=== PATIENT | female | born 1945 | race African-American/Black ===

== ENCOUNTER 2017-04-09 11:11 | Inpatient (IN) | payer OTHER ==
[~2017-04-09] VITALS: Ht 206 cm; Wt 94.5 kg
--- NOTE | ~2017-04-09 | HC ---
[facility] [place] [address] [address] CONSULTATION Name: IM STALEY Room #: 212-P [facility] IN .R.#: [id number] Admission: 04/10/17 Attend Phys: Babatunde Vicente DO Discharge: Date of : 47 Report #: [id number] THIS REPORT FOR: //name// CC: Babatunde Khan MD DATE OF SERVICE: 04/09/2017 CARDIOLOGY CONSULTATION HISTORY OF PRESENT ILLNESS: The patient is a 72-year-old single black female who I was asked to see in hospital today after she complained of being short of breath. The patient has a long history of atrial fibrillation. She has never been cardioverted, but has been chronically anticoagulated. She has been followed by my partner, Dr. Garland Randall. She actually last saw Dr. Randall 2 years ago. She is not very active because of her large size. She is 5 feet 3 inches and weighs 220 pounds. She does use a cane. However, she still lives by herself. She was doing well she states until a couple weeks ago. She got a flu shot. She then broke out in a rash. She has had progressive shortness of breath. Today because of increasing shortness of breath and fatigue, she finally came to the emergency room and was admitted. She denies any increasing edema. She has gained some weight. She denies fever or significant cough, but states she has been wheezing. She denies history of myocardial infarction or chest pain. She notes her heart rate has been faster than usual, but she has had no bleeding. She has had no syncope. PAST MEDICAL HISTORY: Significant for delivering 4 children. She has a history of hypertension, diabetes, hyperlipidemia and gout. She has a history of asthma. Has had nebulizer and inhaler at home. MEDICATIONS: At home consists of Wellbutrin, Lasix 40 mg a day, Prilosec, albuterol inhaler, hydrocodone, lisinopril, digoxin, tramadol, allopurinol, potassium, metformin, Neurontin, Xarelto 20 mg a day and amlodipine 5 mg a day. ALLERGIES: She has intolerance to multiple medications including ATORVASTATIN, CODEINE, DILTIAZEM, PENICILLIN, QUINOLONES, and AMOXICILLIN. FAMILY HISTORY: Her mother had heart disease. SOCIAL HISTORY: She is . Lives by herself in [place], [place]. Quit smoking 10 years ago. No alcohol use. REVIEW OF SYSTEMS: She has had apparently a stroke in the past with some slurred speech. She has COPD. No history of peptic ulcer disease, liver disease, kidney disease, cancer or psychiatric illness. [facility] [address] [place] [address] CONSULTATION Name: MI STALEY Alexx Room #: 212-P [facility] IN M.R.#: [id number] Admission: 04/10/17 Attend Phys: Babatunde Vicente DO Discharge: Date of : 47 Report #: [id number] PHYSICAL EXAMINATION: GENERAL: Revealed an elderly -Portuguese female who is lying in bed. She appeared in no acute distress. VITAL SIGNS: Her blood pressure is 160/80. Pulse is 80 and irregular. She is afebrile. HEENT: She is anicteric. Conjunctivae pink. Mucous members moist. NECK: Veins do not appear distended, radiating systolic murmur noted in carotids. CHEST: Reveals coarse breath sounds bilaterally. HEART: Irregular rhythm, grade 3 holosystolic murmur along lower sternal border. ABDOMEN: Obese, soft and nontender. EXTREMITIES: Had no pitting edema. Dorsalis pedis pulse 1+ bilaterally. SKIN: Cool and dry. NEUROLOGIC: Nonfocal. LYMPH: No adenopathy. MUSCULOSKELETAL: No joint effusions. PSYCHIATRIC: Her mood is appropriate. Her ECG from earlier today showed atrial fibrillation, occasional aberrant conducted complex, nonspecific T-wave changes. Her workup so far, she did have an echocardiogram today that showed normal left ventricular function; left ventricular hypertrophy; biatrial enlargement; mild aortic stenosis; moderate mitral, moderate tricuspid, mild aortic insufficiency and severe pulmonary hypertension with the pulmonary artery pressure of 70 mmHg. X-rays in the Emergency Room today. She had a portable chest x-ray that showed cardiomegaly and bilateral pulmonary edema. Previous nuclear stress test in 2007 showed diaphragmatic attenuation with no ischemia. LABORATORY WORK: Sodium 143 and potassium 3.9. BUN 21 and creatinine 1.1. Glucose 197. Liver function studies were normal. Troponin 0.07. BNP 4074. White blood cell count 15.1 and hemoglobin 12.9. Blood gas in the emergency room today: pH 7.44, pCO2 47 and pO2 is 71. IMPRESSION AND RECOMMENDATIONS: 1. Acute on chronic diastolic heart failure. Recommend IV Lasix. 2. Chronic obstructive pulmonary disease. The patient is receiving bronchodilators. 3. Recent rash. Possibly related to her flu shot. 4. Hypertension. The patient has been on an angiotensin-converting enzyme inhibitor and calcium david. 5. Diabetes. 6. Atrial fibrillation. Rate controlled with digoxin. I would continue chronic anticoagulation. [facility] [address] [place] [address] CONSULTATION Name: MI STALEY Room #: 212-P [facility] IN M.R.#: [id number] Admission: 04/10/17 Attend Phys: Babatunde Vicente DO Discharge: Date of : 47 Report #: [id number] 7. Hyperlipidemia. The patient is on Zetia. 8. Previous stroke. I would continue chronic anticoagulation. <ELECTRONICALLY SIGNED> By: Johnathon Griggs MD, FACC 04/11/17 0956 1707 Johnathon Griggs MD, FACC /nt
--- NOTE | ~2017-04-09 | 2DMMODE ---
[facility] [address] [place] [address] 2 D/M-MODE ECHOCARDIOGRAM Name: MI STALEY Room #: 212-P [facility] IN ..#: [id number] Admission: 04/09/17 Attend Phys: Babatunde Vicente, Discharge: Date of : 47 Date of Service: 04/09/17 [facility] Report #: [id number] THIS REPORT FOR: //name// APPROVED REPORT Study performed: 04/09/2017 16:44:02 EXAM: Comprehensive 2D, Doppler, and color-flow Echocardiogram Patient Location: Bedside Room #: 212 Status: routine BSA: 1.87 HR: 86 bpm BP: 163/97 mmHg Other Information Study Quality: Good Indications Congestive Heart Failure COPD Diabetes Atrial Fibrillation Hypertension/HDD 2D Dimensions RVDd: 33.83 mm LVEF(%): 64.83 (>50%) IVSd: 12.19 (7-11mm) LVOT Diam: 19.02 (18-24mm) LVDd: 47.48 mm PWd: 13.31 (7-11mm) Ascending Ao: 23.41 (22-36mm) LVDs: 30.64 (25-40mm) Aortic Root: 21.64 mm IVC: 24.00 mm Morton's LVEF: 64.83 % Volumes Left Atrial Volume (Systole) Single Plane 4CH: 162.34 mL Single Plane 2CH: 126.53 mL LA ESV Index: 84.00 mL/m2 Aortic Valve AoV Peak Gerber.: 2.92 m/s AO Peak Gr.: 34.22 mmHg LVOT Max P.68 mmHg AO Mean Gr.: 21.03 mmHg LVOT Mean P.74 mmHg AO V2 Mean: 2.14 m/s LVOT Max V: 1.08 m/s AO V2 VTI: 52.25 cm LVOT Mean V: 0.77 m/s [facility] [place] [address] 2 D/M-MODE ECHOCARDIOGRAM Name: REBEKAMI L Room #: 212-P [facility] IN ..#: [id number] Admission: 04/09/17 Attend Phys: Babatunde Vicente, Discharge: Date of : 47 Date of Service: 04/09/17 [facility] Report #: [id number] LUCITA (VTI): 1.03 cm2 LVOT V1 VTI: 18.99 cm LUCITA Vmax: 1.05 cm2 AI Vmax: 4.44 m/s SV (LVOT): 53.93 mL AI [place]: 2.04 m/s2 AI PHT: 633.68 ms Mitral Valve MV Decel. Time: 165.45 ms MV E Max Gerber.: 1.61 m/s Pulmonary Valve PV Peak Gerber.: 1.58 m/s PV Peak Gr.: 10.02 mmHg Tricuspid Valve TR Peak Gerber.: 3.94 m/s TR Peak Gr.: 62.04 mmHg PA Pressure: 72.00 mmHg Left Ventricle The left ventricle is normal size. There is normal LV segmental wall motion. Mild concentric left ventricular hypertrophy. The left ventricular systolic function is normal. The left ventricular ejection fraction is within the normal range. LVEF is 60-65%. This study is not technically sufficient to allow evaluation of the LV diastolic function due to atrial fibrillation. Right Ventricle The right ventricle is normal size. The right ventricular systolic function is normal. Atria Left atrium is severely dilated. Right atrium is moderately dilated. Aortic Valve Aortic valve is calcified. Mild aortic regurgitation. Mild aortic stenosis. Mitral Valve The mitral valve is normal in structure. Mild to moderate mitral regurgitation. No evidence of mitral valve stenosis. Tricuspid Valve The tricuspid valve is normal in structure. There is moderate tricuspid regurgitation. The right atrial pressure is estimated at 70 mmHg. There is severe pulmonary hypertension. [facility] [address] [place] [address] 2 D/M-MODE ECHOCARDIOGRAM Name: MI STALEY Room #: 212-P [facility] IN ..#: [id number] Admission: 04/09/17 Attend Phys: Babatunde Vicente, Discharge: Date of : 47 Date of Service: 04/09/17 [facility] Report #: [id number] Pulmonic Valve The pulmonary valve is normal in structure. Mild pulmonic regurgitation. Great Vessels The aortic root is normal in size. IVC is normal in size and collapses >50% with inspiration. Pericardium There is no pericardial effusion. <Conclusion> Mild concentric left ventricular hypertrophy. LVEF is 60-65%. Left atrium is severely dilated. Right atrium is moderately dilated. Aortic valve is calcified. Mild aortic regurgitation. Mild to moderate mitral regurgitation. There is moderate tricuspid regurgitation. The right atrial pressure is estimated at 70 mmHg. There is severe pulmonary hypertension. Mild aortic stenosis. <ELECTRONICALLY SIGNED> By: Johnathon Griggs MD, FACC 04/09/17 1640 1640 1640 Johnathon Griggs MD, FACC /INF
--- NOTE | ~2017-04-09 | EKG ---
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[id number] Requested By: Alvaro Blanco Order Number: [id number] MD: Rudy Lagunas Measurements Intervals [place] Rate: 94 P: NM: QRS: 33 QRSD: 95 T: 143 QT: 351 QTc: 439 Interpretive Statements Atrial fibrillation Ventricular premature complex Borderline low voltage, extremity leads Probable left ventricular hypertrophy Nonspecific T abnormalities, lateral leads Baseline wander in lead(s) V6 Compared to ECG 08/09/2007 10:27:05 Ventricular premature complex(es) now present T-wave abnormality now present ST (T wave) deviation no longer present Possible ischemia no longer present Electronically Signed On 04-09-2017 18:43:03 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
[2017-04-09 11:12] VITALS: BP 144/69
[2017-04-09 11:51] LABS: HEMATOCRIT 39.7 % (37.0-47.0); HEMOGLOBIN 12.9 gm/dL (12.0-15.0); MCH 27.9 pg (26.0-34.0); MCHC 32.4 g/dL (28.0-37.0); PLATELET COUNT 280 thou/uL (150-400); RBC 4.61 mil/uL (4.20-5.00); RDW 15.2 % (10.5-14.5); WBC 15.1 thou/uL (4.0-11.0)
[2017-04-09 11:52] LABS: MANUAL DIFF YES
[2017-04-09] MEDS ORDERED: WELLBUTRIN XL150 MG PO (11:52)
[2017-04-09] MEDS ORDERED: CARAFATE 1 GM TA1 G1 PO (11:52)
[2017-04-09] MEDS ORDERED: PREDNISONE 10 M10 MG PO (11:52)
[2017-04-09 11:53] LABS: CALCIUM 9.6 mg/dL (8.5-10.1); CREATININE 1.1 mg/dL (0.6-1.0); POTASSIUM 3.9 mmol/L (3.5-5.1)
[2017-04-09] MEDS ORDERED: LASIX 40 MG TAB40 M2 PO (11:53)
[2017-04-09] MEDS ORDERED: ZYRTEC10 M4 PO (11:54)
[2017-04-09] MEDS ORDERED: PRILOSEC 20 MG20 MG PO (11:54)
[2017-04-09] MEDS ORDERED: FLONASE SENSIM9.9 ML INH (11:55)
[2017-04-09] MEDS ORDERED: CALCIUM 600 +1 EAC1 PO (11:57)
[2017-04-09] MEDS ORDERED: PROAIR RESPICL90 MCG (11:58)
[2017-04-09 11:59] LABS: ABG COMMENT ER MASK; ABG SAMPLE TYPE ARTERIAL; BE(vivo) 6.6 mmol/L (-2 to +3); HCO3 31.8 mmol/L (22.0-26.0); LACTATE 2.16 mmol/L (0.5-2.0); O2(CT) 17.5 mL/dL (15.0-23.0); O2Hb 90.9 % (92.0-98.0); PCO2 47.3 mmHg (35.0-45.0); PO2 61.7 mmHg (80.0-100.0); STICK SITE L.RADIAL; VDS 15LPM TO NONREBREATH cc; pH 7.445 (7.360-7.450); sO2 92.3 % (92.0-98.0); tCO2 33.2 mmol/L (24.0-30.0)
[2017-04-09] MEDS ORDERED: HYDROCODONE-AP1 EAC6 PO (11:59)
[2017-04-09] MEDS ORDERED: VENTOLIN HFA 1818 GM INH (11:59)
[2017-04-09] MEDS ORDERED: LISINOPRIL20 MG PO (11:59)
[2017-04-09] MEDS ORDERED: TRAMADOL 50 MG50 MG PO (12:00)
[2017-04-09] MEDS ORDERED: DIGOXIN250 MCG PO (12:00)
[2017-04-09 12:01] LABS: INR 1.4; PROTIME 13.9 Seconds (9.3-11.4)
[2017-04-09] MEDS ORDERED: ALLOPURINOL 10100 M1 PO (12:01)
[2017-04-09] MEDS ORDERED: ERGOCALCIF50000 UNIT PO (12:01)
[2017-04-09 12:02] LABS: ALBUMIN 2.9 g/dL (3.4-5.0); MAGNESIUM 1.8 mg/dL (1.8-2.4); TOTAL BILIRUBIN 0.8 mg/dL (<0.1-1.0); TOTAL PROTEIN 7.1 g/dL (6.4-8.2); TROPONIN-I 0.08 ng/mL (<0.06)
[2017-04-09] MEDS ORDERED: KLOR-CON 1010 MEQ PO (12:02)
[2017-04-09] MEDS ORDERED: VOLTAREN GEL 1100 G2 TOP (12:02)
[2017-04-09] MEDS ORDERED: AMBIEN 5 MG TABL5 M1 PO (12:03)
[2017-04-09] MEDS ORDERED: ALBUTEROL2.5 MG/31 INH (12:03)
[2017-04-09] MEDS ORDERED: NEURONTIN 300300 M1 PO (12:04)
[2017-04-09] MEDS ORDERED: XARELTO20 MG PO (12:04)
[2017-04-09] MEDS ORDERED: GLUCOPHAGE XR500 MG PO (12:04)
[2017-04-09] MEDS ORDERED: COLCHICINE0.6 MG PO (12:05)
[2017-04-09] MEDS ORDERED: NORVASC5 MG PO (12:05)
[2017-04-09] MEDS ORDERED: NASONEX17 GM NASAL (12:06)
[2017-04-09] MEDS ORDERED: TUDORZA PRESS400 MCG INH (12:06)
[2017-04-09 12:56] LABS: ABSOLUTE NEUTROPHILS 13.4 thou/uL (1.4-8.2); METAMYELOCYTES 1 %; TOTAL CELL COUNT 100
[2017-04-09 12:57] LABS: ANISOCYTOSIS SLIGHT
[2017-04-09 13:49] VITALS: BP 169/79
[2017-04-09 14:36] VITALS: BP 163/97
[2017-04-09 14:50] VITALS: BP 163/97
[2017-04-09 19:26] VITALS: BP 142/54
[2017-04-09 23:47] VITALS: BP 151/90
[2017-04-10 02:45] LABS: HEMATOCRIT 37.2 % (37.0-47.0); HEMOGLOBIN 11.9 gm/dL (12.0-15.0); MCH 27.9 pg (26.0-34.0); MCV 87.2 fL (80.0-100.0); PLATELET COUNT 272 thou/uL (150-400); RBC 4.26 mil/uL (4.20-5.00); RDW 15.1 % (10.5-14.5); WBC 11.8 thou/uL (4.0-11.0)
[2017-04-10 02:47] VITALS: BP 171/100
[2017-04-10 02:49] LABS: MANUAL DIFF YES
[2017-04-10 02:52] LABS: POTASSIUM 4.2 mmol/L (3.5-5.1)
[2017-04-10 03:30] LABS: DIGOXIN 1.4 ng/mL (0.9-2.0); MAGNESIUM 1.9 mg/dL (1.8-2.4)
[2017-04-10 04:31] VITALS: BP 173/82
[2017-04-10 05:39] LABS: METAMYELOCYTES 1 %; TOTAL CELL COUNT 100
[2017-04-10 07:20] VITALS: BP 150/86
[2017-04-10 11:23] VITALS: BP 146/80
[2017-04-10 15:04] VITALS: BP 135/65
[2017-04-10 19:38] VITALS: BP 141/78
[2017-04-11 03:36] LABS: CALCIUM 9.1 mg/dL (8.5-10.1); CREATININE 1.3 mg/dL (0.6-1.0); POTASSIUM 4.2 mmol/L (3.5-5.1)
[2017-04-11 04:06] VITALS: BP 145/75
[2017-04-11 07:18] VITALS: BP 132/77
[2017-04-11 11:26] VITALS: BP 124/74
[2017-04-11 15:20] VITALS: BP 108/52
[2017-04-11 19:20] VITALS: BP 128/80
[2017-04-12 03:36] VITALS: BP 154/81
[2017-04-12 07:25] VITALS: BP 143/81
[2017-04-12 11:35] VITALS: BP 118/78
[2017-04-12] MEDS ORDERED: COREG6.25 MG PO (13:56)
[2017-04-12 14:30] VITALS: BP 118/78
[2017-04-15 04:07] LABS: ANGIOTENSIN CONVERTNG ENZ < 15 U/L (14-82)
[2017-04-15 09:09] LABS: ANTI-DNA SCREEN <1 IU/mL (0-9); ANTI-RNP <0.2 AI (0.0-0.9)
[2017-04-15 14:10] LABS: c-ANCA <1:20 titer (Neg:<1:20); p-ANCA <1:20 titer (Neg:<1:20)
== END 2017-04-12 17:34 | disposition home or self-care (01) | DRG 291 ==
LOC: ER 11:11 → EROBS 13:09 → 2N 13:09
PROVIDERS: Emergency Medicine; Internal Medicine Cardiovascular Disease; Internal Medicine Pulmonary Disease; Nurse Practitioner
DX: I11.0 Hypertensive heart disease with heart failure (principal); J96.01 Acute respiratory failure with hypoxia; N17.9 Acute kidney failure, unspecified; E44.0 Moderate protein-calorie malnutrition; I50.33 Acute on chronic diastolic (congestive) heart failure; E78.5 Hyperlipidemia, unspecified; I48.91 Unspecified atrial fibrillation; D72.829 Elevated white blood cell count, unspecified; J44.9 Chronic obstructive pulmonary disease, unspecified; M19.90 Unspecified osteoarthritis, unspecified site; E11.9 Type 2 diabetes mellitus without complications; Z88.6 Allergy status to analgesic agent; Z88.1 Allergy status to other antibiotic agents; Z88.0 Allergy status to penicillin; Z88.8 Allergy status to other drugs, medicaments and biological substances; Z86.73 Personal history of transient ischemic attack (TIA), and cerebral infarction without residual deficits; Z87.891 Personal history of nicotine dependence; Z68.22 Body mass index [BMI] 22.0-22.9, adult; Z79.899 Other long term (current) drug therapy; M10.9 Gout, unspecified; Z82.49 Family history of ischemic heart disease and other diseases of the circulatory system

== ENCOUNTER → 2017-05-23 | Outpatient (CLI) | payer OTHER ==
[~2017-05-23] MED LIST: ALBUTEROL2.5 MG/31 INH; ALLOPURINOL 10100 M1 PO; AMBIEN 5 MG TABL5 M1 PO; CALCIUM 600 +1 EAC1 PO; CARAFATE 1 GM TA1 G1 PO; COLCHICINE0.6 MG PO; COREG6.25 MG PO; DIGOXIN250 MCG PO; ERGOCALCIF50000 UNIT PO; FLONASE SENSIM9.9 ML INH; GLUCOPHAGE XR500 MG PO; HYDROCODONE-AP1 EAC6 PO; KLOR-CON 1010 MEQ PO; LASIX 40 MG TAB40 M2 PO; LISINOPRIL20 MG PO; NASONEX17 GM NASAL; NEURONTIN 300300 M1 PO; NORVASC5 MG PO; PREDNISONE 10 M10 MG PO; PRILOSEC 20 MG20 MG PO; PROAIR RESPICL90 MCG; TRAMADOL 50 MG50 MG PO; TUDORZA PRESS400 MCG INH; VENTOLIN HFA 1818 GM INH; VOLTAREN GEL 1100 G2 TOP; WELLBUTRIN XL150 MG PO; XARELTO20 MG PO; ZYRTEC10 M4 PO
== END ==
LOC: RAD 09:11
DX: R06.02 Shortness of breath (principal)